=== PATIENT | male | born 1990 | race Caucasian/White ===

== ENCOUNTER 2017-05-20 23:08 | Emergency (ER) | payer OTHER ==
[~2017-05-20] VITALS: Ht 198.1 cm; Wt 81.8 kg
[~2017-05-20 23:08] MED LIST: IBUP600T26 PO
[2017-05-20 23:23] VITALS: BP 128/63; PULSE 82; RESP 14; TEMP 97.7; O2SAT 98
[2017-05-20] MEDS ORDERED: SODIUM CHLORIDE 0.9% FLUSH 10 ML FLUSH IVF PRN (23:30)
[2017-05-20] MEDS ORDERED: CLINDAMYCIN INJ 900 MG in SODIUM CHLORIDE 0.9% INJ 100 ML IV ONE (23:45)
[2017-05-21 00:20] LABS: AUTOMATED NEUTROPHIL # 1.3 TH/MM3 (1.8-7.7); BASOPHIL % 0.8 % (0.0-2.0); EOSINOPHIL # 0.2 TH/MM3 (0-0.4); EOSINOPHIL % 4.3 % (0.0-4.0); HEMATOCRIT 43.5 % (39.0-51.0); LYMPH % 60.1 % (9.0-44.0); LYMPHOCYTE # 3.3 TH/MM3 (1.0-4.8); MEAN CELL VOLUME 91.6 FL (80.0-100.0); MEAN CORPUSCULAR HEMOGLOBIN 31.2 PG (27.0-34.0); MONO % 10.7 % (0.0-8.0); NEUT % 24.1 % (16.0-70.0); PLATELET COUNT 154 TH/MM3 (150-450); RED BLOOD COUNT 4.75 MIL/MM3 (4.50-5.90); RED CELL DISTRIBUTION WIDTH 14.2 % (11.6-17.2); WHITE BLOOD COUNT 5.5 TH/MM3 (4.0-11.0)
[2017-05-21 00:24] LABS: HEMO FLAGS AUTO DIFF
--- NOTE | 2017-05-21 00:52 | RADRPT ---
EXAM DATE/TIME: 05/21/2017 00:15 [place] COMPARISON: No previous studies available for comparison. INDICATIONS : Left arm palpable lump. MEDICAL HISTORY : Head trauma. Asthma. Substance use. Depression. SURGICAL HISTORY : Dislocated hip. ENCOUNTER: Initial ACUITY: 3 days PAIN SCORE: 6/10 LOCATION: Left arm. AREA EVALUATED: Left mid anterior lateral forearm. FINDINGS: Echogenic noncompressible material is seen involving the mid and distal cephalic vein within the fore arm. This is nonocclusive. No mass or fluid collections. CONCLUSION: Small volume nonocclusive thrombus involving the cephalic vein within the forearm. Timmy Laboy Jr., MD on May 21, 2017 at 0:49 Board Certified Radiologist. This report was verified electronically.
--- NOTE | 2017-05-21 00:52 | PD ---
HPI Chief Complaint: Psychiatric Symptoms Time Seen by Provider: 23:30 Travel History International Travel<30 days: No Contact w/Intl Traveler<30days: No Traveled to known affect area: No History of Present Illness HPI Patient is a 26-year-old male presenting to the emergency Department under Hdz act due to suicidal ideations. Patient reports marital issues with his sex with his best friend while he was in bed. He reported that he didn't say anything about it initially but when he built up the courage to confront his , his friend threatened him and told him to get out of town. Patient came back to the [facility] from [place] recently. He does report using methamphetamines, he injected into his left forearm a few days ago. Since that time he's had some redness and swelling to the anterior aspect. He denies any significant pain. He further denies any fever, chills. Patient reports a history of schizophrenia and bipolar disorder. PFSH Past Medical History ADHD: No Asthma: Yes Autoimmune Disease: No Anxiety: No Depression: Yes Cancer: No Cardiovascular Problems: No Diabetes: No Diminished Hearing: No Genitourinary: No Headaches: Yes Musculoskeletal: Yes (LEFT HIP TRACTION DUE TO "CRACKING") Neurologic: No Psychiatric: Yes Respiratory: No Immunizations Current: Yes Migraines: No Seizures: No Thyroid Disease: No Ulcer: No Influenza Vaccination: No Past Surgical History Appendectomy: No Section: No Cholecystectomy: No Other Surgery: Yes (DISLOCATED HIP IN 2006) Social History Alcohol Use: Yes (in rehab hx of alcohol use - NOW DRINKS OCC) Tobacco Use: No (1/2 PPD) Substance Use: No (hx of use MARIJUANA,benzo, opiates, barbiturates, METH ) Allergies-Medications (Allergen,Severity, Reaction): Coded Allergies: No Known Allergies (Verified , 03/01/16) Reported Meds & Prescriptions Reported Meds & Active Scripts Active Ibuprofen 600 Mg Tab 600 Mg PO Q6 PRN Review of Systems Except as stated in HPI: all other systems reviewed are Neg Skin: Positive Lumps, Positive Change in Pigmentation Psychiatric: Positive: Depression, Suicidal Ideations, Substance Abuse Physical Exam Narrative GENERAL: Thin, well-developed, alert male. Appears intoxicated, in no acute distress. SKIN: Warm and dry. HEAD: Atraumatic. Normocephalic. 2 cm lump to the left anterior forearm just proximal to the wrist, erythema and edema noted, no fluctuance. Tender to palpation. EYES: Pupils equal and round. No scleral icterus. No injection or drainage. ENT: No nasal bleeding or discharge. Mucous membranes pink and moist. NECK: Trachea midline. No JVD. CARDIOVASCULAR: Regular rate and rhythm. RESPIRATORY: No accessory muscle use. Clear to auscultation. Breath sounds equal bilaterally. GASTROINTESTINAL: Abdomen soft, non-tender, nondistended. Hepatic and splenic margins not palpable. MUSCULOSKELETAL: Extremities without clubbing, cyanosis, or edema. No obvious deformities. NEUROLOGICAL: Awake and alert. No obvious cranial nerve deficits. Motor grossly within normal limits. Five out of 5 muscle strength in the arms and legs. Normal speech. PSYCHIATRIC: Depressed mood and flat affect; insight and judgment normal. Data Data Last Documented VS Vital Signs Date Time Temp Pulse Resp B/P (MAP) Pulse Ox O2 Delivery O2 Flow Rate FiO2 05/20/17 23:23 97.7 82 14 128/63 (84) 98 Orders Orders Complete Blood Count With Diff (05/20/17 23:30) Comprehensive Metabolic Panel (05/20/17 23:30) Iv Access Insert/Monitor (05/20/17 23:30) Psych Screen (05/20/17 23:30) Sodium Chloride 0.9% Flush (Ns Flush) (05/20/17 23:30) Drug Screen, Random Urine (05/20/17 23:30) Alcohol (Ethanol) (05/20/17 23:30) Salicylates (Aspirin) (05/20/17 23:30) Tylenol (Acetaminophen) (05/20/17 23:30) Us Arm Soft Tissue (05/20/17 ) Clindamycin Inj (Cleocin Inj) (05/20/17 23:45) Labs Laboratory Tests Test 05/21/17 00:05 White Blood Count 5.5 TH/MM3 Red Blood Count 4.75 MIL/MM3 Hemoglobin 14.8 GM/DL Hematocrit 43.5 % Mean Corpuscular Volume 91.6 FL Mean Corpuscular Hemoglobin 31.2 PG Mean Corpuscular Hemoglobin Concent 34.0 % Red Cell Distribution Width 14.2 % Platelet Count 154 TH/MM3 Mean Platelet Volume 9.2 FL Neutrophils (%) (Auto) 24.1 % Lymphocytes (%) (Auto) 60.1 % Monocytes (%) (Auto) 10.7 % Eosinophils (%) (Auto) 4.3 % Basophils (%) (Auto) 0.8 % Neutrophils # (Auto) 1.3 TH/MM3 Lymphocytes # (Auto) 3.3 TH/MM3 Monocytes # (Auto) 0.6 TH/MM3 Eosinophils # (Auto) 0.2 TH/MM3 Basophils # (Auto) 0.0 TH/MM3 CBC Comment AUTO DIFF Differential Total Cells Counted 100 Neutrophils % (Manual) 25 % Band Neutrophils % 2 % Lymphocytes % 56 % Monocytes % 4 % Eosinophils % 5 % Neutrophils # (Manual) 1.5 TH/MM3 Differential Comment FINAL DIFF MANUAL Atypical Lymphocytes 8 % Platelet Estimate NORMAL Platelet Morphology Comment ENLARGED Blood Urea Nitrogen 16 MG/DL Creatinine 1.01 MG/DL Random Glucose 112 MG/DL Total Protein 6.9 GM/DL Albumin 3.1 GM/DL Calcium Level 8.2 MG/DL Alkaline Phosphatase 78 U/L Aspartate Amino Transf (AST/SGOT) 48 U/L Alanine Aminotransferase (ALT/SGPT) 97 U/L Total Bilirubin 0.6 MG/DL Sodium Level 139 MEQ/L Potassium Level 3.8 MEQ/L Chloride Level 105 MEQ/L Carbon Dioxide Level 27.0 MEQ/L Anion Gap 7 MEQ/L Estimat Glomerular Filtration Rate 91 ML/MIN Acetaminophen Level LESS THAN 2.0 MCG/ML Ethyl Alcohol Level LESS THAN 3 MG/DL MDM Medical Decision Making Medical Screen Exam Complete: Yes Emergency Medical Condition: Yes Interpretation(s) Vital Signs Date Time Temp Pulse Resp B/P (MAP) Pulse Ox O2 Delivery O2 Flow Rate FiO2 05/20/17 23:23 97.7 82 14 128/63 (84) 98 Differential Diagnosis Mood disorder versus substance abuse versus suicidal ideations versus cellulitis versus abscess versus other Narrative Course Patient presented to emergency Department under a Hdz act for psychiatric evaluation secondary to suicidal ideations and depression. Patient reports a history of schizophrenia and bipolar disorder, he endorses methamphetamine use. He injected a few days ago into his left forearm resulting in what appeared to be an abscess initially. An ultrasound was obtained that shows a nonocclusive thrombus in the cephalic vein. Discussed with Dr. Laboy the radiologist, he stated that there was no indication for anticoagulation in this superficial vein. Patient was given a dose of clindamycin as it was initially suspected to be an abscess. CBC shows no elevation in white count, his vital signs are stable, he is not tachycardic or febrile. Chemistry with mild elevation in liver enzymes however no acute abnormalities identified. Alcohol, acetaminophen, salicylate level reviewed, no acute abnormalities identified. Patient will be continued on Keflex prophylactically. Patient is medically cleared at this time for psychiatric evaluation. Diagnosis Primary Impression: Medical clearance for psychiatric admission Additional Impressions: Non-occlusive thrombus IV drug user Cellulitis Qualified Codes: L03.114 - Cellulitis of left upper limb Med/Other Pt SpecificInfo: Prescription(s) given Scripts Cephalexin (Keflex) 500 Mg Cap 500 MG PO Q12H for Infection for 10 Days, #20 CAP 0 Refills Prov: Sonia Gu 05/21/17 Condition: Stable Sonia Gu May 21, 2017 00:52
[2017-05-21 01:14] LABS: ANION GAP 7 MEQ/L (5-15); AST (GOT) 48 U/L (15-37); BLOOD UREA NITROGEN 16 MG/DL (7-18); CHLORIDE 105 MEQ/L (98-107); GLOMERULAR FILTRATION RATE 91 ML/MIN (>89); POTASSIUM 3.8 MEQ/L (3.5-5.1); SODIUM (NA) 139 MEQ/L (136-145)
[2017-05-21 01:16] LABS: ACETAMINOPHEN LESS THAN 2.0 MCG/ML (10.0-30.0); ALCOHOL LESS THAN 3 MG/DL (0-5); ALKALINE PHOSPHATASE 78 U/L (45-117); ALT (GPT) 97 U/L (12-78); TOTAL BILIRUBIN ADULT 0.6 MG/DL (0.2-1.0)
[2017-05-21 01:17] LABS: ATYPICAL LYMPHOCYTES 8 % (0-0); BANDS 2 % (0-6); EOSINOPHILS 5 % (0-4); NEUTROPHIL # MANUAL DIFF 1.5 TH/MM3 (1.8-7.7); POLYS (SEG NEUTROPHILS) 25 % (16-70); WBC DIFF SAMPLE 100
[2017-05-21 01:18] LABS: PLATELET ESTIMATE SMEAR NORMAL (NORMAL); PLATELET MORPHOLOGY ENLARGED (NORMAL)
[2017-05-21 01:19] LABS: SCAN/DIFF FINAL DIFF MANUAL
[2017-05-21] MEDS ORDERED: CEPH-460 PO (01:59)
[2017-05-21 05:30] VITALS: BP 110/67; PULSE 67; RESP 14; O2SAT 100
[2017-05-21] MEDS ORDERED: CEPHALEXIN MONOHYDRATE 500 MG CAP PO ONE (08:00)
[2017-05-21 08:01] VITALS: BP 113/67; PULSE 86; RESP 17; TEMP 98; O2SAT 100
--- NOTE | 2017-05-21 14:19 | EKG ---
Date Performed: 05/21/2017 Time Performed: 09:02:06 PTAGE: 26 years EKG: SINUS BRADYCARDIA WITH 2ND DEGREE AV BLOCK, MOBITZ TYPE II POSSIBLE RIGHT VENTRICULAR CONDU CTION DELAY ABNORMAL ECG PREVIOUS TRACING : 01/02/2011 11.18 DOCTOR: Israel Urbina Interpretating Date/Time 05/21/2017 14:14:36
[2017-05-21 18:20] VITALS: BP 118/71; PULSE 65; RESP 17; TEMP 98.6; O2SAT 100
[2017-05-21 22:07] VITALS: BP 104/55; PULSE 80; RESP 19; O2SAT 97
[2017-05-22 02:00] VITALS: BP 96/54; PULSE 75; RESP 16
[2017-05-22 08:41] VITALS: BP 125/63; PULSE 68; RESP 18; O2SAT 100
[2017-05-22] MEDS: NICOTINE 21 MG/24 HR PATCH T-DERMAL ONE ×2 (10:59→11:01)
--- NOTE | 2017-05-22 12:03 | PD ---
Physical Exam Date Seen by Provider: May 22, 2017 Time Seen by Provider: 12:00 Narrative 26-year-old male previously medically cleared for Hdz act. Patient has been seen and evaluated by psychiatric services, and felt to be psychiatrically stable for discharge. Patient is medically stable for discharge. Patient was diagnosed with cellulitis treated with cephalexin which the patient has a prescription for. See psychiatric note for follow-up plan. Data Data Last Documented VS Vital Signs Date Time Temp Pulse Resp B/P (MAP) Pulse Ox O2 Delivery O2 Flow Rate FiO2 05/22/17 08:41 68 18 125/63 (83) 100 05/21/17 18:20 98.6 05/21/17 08:01 Room Air Orders Orders Complete Blood Count With Diff (05/20/17 23:30) Comprehensive Metabolic Panel (05/20/17 23:30) Iv Access Insert/Monitor (05/20/17 23:30) Psych Screen (05/20/17 23:30) Sodium Chloride 0.9% Flush (Ns Flush) (05/20/17 23:30) Drug Screen, Random Urine (05/20/17 23:30) Alcohol (Ethanol) (05/20/17 23:30) Salicylates (Aspirin) (05/20/17 23:30) Tylenol (Acetaminophen) (05/20/17 23:30) Us Arm Soft Tissue (05/20/17 ) Clindamycin Inj (Cleocin Inj) (05/20/17 23:45) Cephalexin (Keflex) (05/21/17 08:00) Diet Regular Basic (05/21/17 Breakfast) Electrocardiogram (05/21/17 ) Diet Regular Basic (05/21/17 Dinner) Diet Regular Basic (05/22/17 Breakfast) Diet Regular Basic (05/22/17 Lunch) Nicotine 21 Mg Patch.24 Hr (Habitrol 21 (05/22/17 10:45) Labs Laboratory Tests Test 05/21/17 00:05 05/21/17 18:20 White Blood Count 5.5 TH/MM3 Red Blood Count 4.75 MIL/MM3 Hemoglobin 14.8 GM/DL Hematocrit 43.5 % Mean Corpuscular Volume 91.6 FL Mean Corpuscular Hemoglobin 31.2 PG Mean Corpuscular Hemoglobin Concent 34.0 % Red Cell Distribution Width 14.2 % Platelet Count 154 TH/MM3 Mean Platelet Volume 9.2 FL Neutrophils (%) (Auto) 24.1 % Lymphocytes (%) (Auto) 60.1 % Monocytes (%) (Auto) 10.7 % Eosinophils (%) (Auto) 4.3 % Basophils (%) (Auto) 0.8 % Neutrophils # (Auto) 1.3 TH/MM3 Lymphocytes # (Auto) 3.3 TH/MM3 Monocytes # (Auto) 0.6 TH/MM3 Eosinophils # (Auto) 0.2 TH/MM3 Basophils # (Auto) 0.0 TH/MM3 CBC Comment AUTO DIFF Differential Total Cells Counted 100 Neutrophils % (Manual) 25 % Band Neutrophils % 2 % Lymphocytes % 56 % Monocytes % 4 % Eosinophils % 5 % Neutrophils # (Manual) 1.5 TH/MM3 Differential Comment FINAL DIFF MANUAL Atypical Lymphocytes 8 % Platelet Estimate NORMAL Platelet Morphology Comment ENLARGED Blood Urea Nitrogen 16 MG/DL Creatinine 1.01 MG/DL Random Glucose 112 MG/DL Total Protein 6.9 GM/DL Albumin 3.1 GM/DL Calcium Level 8.2 MG/DL Alkaline Phosphatase 78 U/L Aspartate Amino Transf (AST/SGOT) 48 U/L Alanine Aminotransferase (ALT/SGPT) 97 U/L Total Bilirubin 0.6 MG/DL Sodium Level 139 MEQ/L Potassium Level 3.8 MEQ/L Chloride Level 105 MEQ/L Carbon Dioxide Level 27.0 MEQ/L Anion Gap 7 MEQ/L Estimat Glomerular Filtration Rate 91 ML/MIN Salicylates Level LESS THAN 1.7 MG/DL Acetaminophen Level LESS THAN 2.0 MCG/ML Ethyl Alcohol Level LESS THAN 3 MG/DL Urine Opiates Screen NEG Urine Barbiturates Screen NEG Urine Amphetamines Screen POS Urine Benzodiazepines Screen POS Urine Cocaine Screen NEG Urine Cannabinoids Screen POS MDM Medical Record Reviewed: Yes Supervised Visit with JARETH: Yes Narrative Course 26-year-old male previously medically cleared for Hdz act. Patient has been seen and evaluated by psychiatric services, and felt to be psychiatrically stable for discharge. Patient is medically stable for discharge. Patient was diagnosed with cellulitis treated with cephalexin which the patient has a prescription for. See psychiatric note for follow-up plan. Diagnosis Primary Impression: Medical clearance for psychiatric admission Additional Impressions: Non-occlusive thrombus Cellulitis Qualified Codes: L03.114 - Cellulitis of left upper limb IV drug user Patient Instructions: Cellulitis (ED), General Instructions Additional Instruction: Follow-up plan as specified by the psychiatrist. Patient take Keflex as previously prescribed. Scripts No Active Prescriptions or Reported Meds Disposition: 01 DISCHARGE HOME Condition: Stable Yobani Rubio May 22, 2017 12:03
--- NOTE | 2017-05-22 12:13 | PD.PSY.CON ---
Provisional Diagnosis Admission Date [place] I. Adjustment disorder with mixed disturbances of emotion and conduct f 43.25, polysubstance abuse f 19.10 History of Present Illness Service Psychiatry Consult Requested By EDMD Reason for Consult Wilder act Primary Care Physician No Primary Care Physician NIVIA Patient is a 26-year-old white male heavily tattooed comes here under Hdz act by the [place] [employer] dated 05/20/17 at 10:43 PM that document reviewed and essentially states, stated that his left him and he wants to kill himself. Calm and try to kill himself yesterday by taking cocaine and today took 5 Xanax with 5 Lortabs, continues to state that he wants to kill himself while in officer's presence. Patient seen screened in the ED urine tox culture positive for amphetamines benzodiazepines and marijuana. At the present time patient sitting quietly in his room on J pod nurse Marla present throughout the session. Patient is alert thin slender white male heavily tattooed as mentioned. He states that he is tired of his addictions his use of the above drugs. He said his friend told him to get Hdz acted as a vehicle to get into detox. Patient denies suicidality homicidality voices or visions. He does issues the drugs as mentioned above. He does state he has had prior detox and rehabilitation. He also acknowledges multiple legal issues and incarcerations related to drug use. At this time patient does not meet Hdz criteria. It appears she was manipulating the system an attempt him to rehabilitation. He now wishes to go home. States he has a job waiting for him in [place]. Patient is from [place]. He does see a family of origin parents that are supportive of him patient has a history of detox and rehabilitation in the past he was also went through rehabilitation well incarcerated. Thus we will allow patient to be discharged today to himself. He will take responsibility for finding appropriate drug treatment facilities and programs. The been no Rx by me strong recommendation absolute abstinence Review of Systems Constitutional: DENIES: Diaphoretic episodes, Fatigue, Fever, Weight gain, Weight loss, Chills, Dizziness, Change in appetite, Night Sweats Endocrine: DENIES: Heat/cold intolerance, Polydipsia, Polyuria, Polyphagia Eyes: DENIES: Blurred vision, Diplopia, Eye inflammation, Eye pain, Vision loss , Photosensitivity, Double Vision Ears, nose, mouth, throat: DENIES: Tinnitus, Hearing loss, Vertigo, Nasal discharge, Oral lesions, Throat pain, Hoarseness, Ear Pain, Running Nose, Epistaxis, Sinus Pain, Toothache, Odynophagia Respiratory: DENIES: Apneas, Cough, Snoring, Wheezing, Hemoptysis, Sputum production, Shortness of breath Cardiovascular: DENIES: Chest pain, Palpitations, Syncope, Dyspnea on Exertion , PND, Lower Extremity Edema, Orthopnea, Claudication Gastrointestinal: DENIES: Abdominal pain, Black stools, Bloody stools, Constipation, Diarrhea, Nausea, Vomiting, Difficulty Swallowing, Anorexia Genitourinary: DENIES: Sexual dysfunction, Urinary frequency, Urinary incontinence, Urgency, Hematuria, Dysuria, Nocturia, Penile Discharge, Testicular Pain, Testicular Swelling Musculoskeletal: DENIES: Joint pain, Muscle aches, Stiffness, Joint Swelling, Back pain, Neck pain Integumentary: DENIES: Abnormal pigmentation, Nail changes, Pruritus, Rash Hematologic/lymphatic: DENIES: Bruising, Lymphadenopathy Immunologic/allergic: DENIES: Eczema, Urticaria Neurologic: DENIES: Abnormal gait, Headache, Localized weakness, Paresthesias, Seizures, Speech Problems, Tremor, Poor Balance Psychiatric: DENIES: Anxiety, Confusion, Mood changes, Depression, Hallucinations, Agitation, Suicidal Ideation, Homicidal Ideation, Delusions Past Family Social History Coded Allergies: No Known Allergies (Verified , 05/22/17) Per pt. Discontinued Scripts Cephalexin (Keflex) 500 Mg Cap, 500 MG PO Q12H for Infection for 10 Days, #20 CAP 0 Refills Prov:Sonia Gu 05/21/17 Ibuprofen (Ibuprofen) 600 Mg Tab, 600 MG PO Q6 Y for PAIN SCALE 4 TO 10, #20 TAB Prov:Lakesha Reilly MD 03/01/16 Current Medications Medications (Trade) Dose Ordered Sig/Ernesto Route Start Time Stop Time Status Last Admin (NS Flush) 2 ml UNSCH PRN IVF 05/20/17 23:30 05/21/17 00:32 Family Psych History None noted Social History Patient broke up with a girlfriend and lumbar months ago is now been living with a friend Patient's Strengths (min. 2) Patient verbal able to access healthcare Physical Exam Patient seen screened in ED exam reviewed and agreed with patient sitting quietly in his room on J pod he is in no acute distress, he is in no respiratory distress. No complaints of abdominal pain, patient moving all 4 extremities without difficulty no abnormal motor movements noted Vital Signs Vital Signs Date Time Temp Pulse Resp B/P (MAP) Pulse Ox O2 Delivery O2 Flow Rate FiO2 05/22/17 08:41 68 18 125/63 (83) 100 05/21/17 18:20 98.6 05/21/17 08:01 Room Air Lab Results Test 05/21/17 18:20 Urine Opiates Screen NEG Urine Barbiturates Screen NEG Urine Amphetamines Screen POS Urine Benzodiazepines Screen POS Urine Cocaine Screen NEG Urine Cannabinoids Screen POS Mental Status Examination Appearance: Appropriate Consciousness: Alert Orientation: x4 Motor Activity: Normal gait Speech: Unremarkable Language: Adequate Fund of Knowledge: Adequate Attention and Concentration: Adequate Memory: Unremarkable Mood: Other (euthymic to slightly irritable) Affect: Other Thought Process & Associations: Intact (slight decreased range and intensity) Thought Content: Appropriate Hallucination Type: None Delusion Type: None Suicidal Ideation: No Suicidal Plan: No Suicidal Intention: No Homicidal Ideation: No Homicidal Plan: No Homicidal Intention: No Insight: Fair Judgment: Impulsive Assessment & Plan Problem List: (1) Adjustment disorder with mixed disturbance of emotions and conduct ICD Codes: F43.25 - Adjustment disorder with mixed disturbance of emotions and conduct (2) Polysubstance abuse ICD Codes: F19.10 - Other psychoactive substance abuse, uncomplicated Assessment & Plan Estimated LOS: days patient does not meet Hdz criteria will lift Wilder act. Patient may be discharged f when medically clear and stable. No Rx by me. Referred to NA, referred to [facility]re[facility] act voluntary outpatient substance abuse assessment Discharge Planning See above Louis Meneses MD May 22, 2017 12:13
== END 2017-05-22 12:29 | disposition home or self-care (01) ==
LOC: NEPD 23:08 → NEPJ 05-22 12:29
DX: L03.114 Cellulitis of left upper limb (principal); I82.612 Acute embolism and thrombosis of superficial veins of left upper extremity; F15.10 Other stimulant abuse, uncomplicated; F20.9 Schizophrenia, unspecified; F31.9 Bipolar disorder, unspecified; R00.1 Bradycardia, unspecified; I44.1 Atrioventricular block, second degree; R94.31 Abnormal electrocardiogram [ECG] [EKG]; J45.909 Unspecified asthma, uncomplicated
CPT/HCPCS: 76882; 80053; 80307; 85007; 85027; 93005; 96365